=== PATIENT | female | born 1980 | race Caucasian/White ===

== ENCOUNTER 2018-04-06 11:14 | Inpatient (IN) | payer BC ==
[2018-04-06] MEDS ORDERED: Dinoprostone* 10 MG VAG.SUPP VAGINAL ONE (11:33)
--- NOTE | 2018-04-06 11:48 | HP ---
General Information - Reason for Visit post date - General Information Maternal Age: 37 Grav: 1 Estimated Due Date: 03/31/18 Determined By: Early Ultrasound Gestational Age in Weeks/Days: 40 w 6d Maternal Blood Type and Rh: A Negative - Results this Serology/RPR Result: Non-Reactive Rubella Result: Immune HBsAg Result: Negative HIV Result: Negative GBS Culture Result: Negative Past Medical History Pertinent Past Medical History: Non-Contributory Past Surgical History Comment: Hysteroscopy Pertinent Family History: Non-Contributory - Antepartal Records Antepartal Records: Reviewed, Uncomplicated - age 37, normal NIPT Review of Systems Constitutional: Comfortable CV Complaint: No Respiratory: Shortness of Breath: No Gastrointestinal: No Nausea/Vomiting, Normal Bowel Movement Genitourinary: No Leaking Fluid Musculoskeletal: No Complaint Neurological: No Headache Movement: Normal Exam Allergies/Adverse Reactions: Allergies No Known Allergies Allergy (Verified 01/27/15 20:34) - Measurements Height: 5 ft 5 in Weight: 204 lb Body Mass Index (BMI): 33.9 Pre- Weight: 155 lb - Exam Breast: - - soft, no masses Extremities: Edema Heart: Normal Rhythm/Heart Sounds HEENT: No Significant Findings Lungs: Clear Bilaterally Reflexes: DTR 2+ Thyroid: No Thyromegaly - Abdominal Exam Abdomen Exam: Non-Tender - Ultrasound/Biophysical Profile Ultrasound Status: Bedside Exam Ultrasound Findings: vertex presentation, spine on right Targeted Exam Findings Estimated Weight: 8 kbs Cervical Exam: Closed Effacement: Thick Station: -2 Presenting Part: Vertex Membrane Status: Intact Bleeding/Discharge: None EFM Findings - External Monitor Findings Baseline Heart Rate: 150 External Monitor Findings: Accelerations Present, No Pattern of Variable or Late Decelerations, Variability Moderate, Baseline Stable External Monitor Findings Comment: category 1 Contractions: None Assessment/Plan - Assessment primip at 40w 6 days, unripe cervix Options reviewed, Cervidil recommended for ripening, pt agreeable - Obstetrical Risk Factors Obstetrical Risk Factors: Assisted Reproduction - Plan Plan: Cervical Ripening - Date/Time of Admission Date of Admission: 04/06/18 Time of Admission: 11:40
--- NOTE | 2018-04-07 09:51 | PN ---
Progress Note - Progress Note Date of Service: 04/07/18 Note: S: Feeling well, slept, ate breakfast. Contractions slowed overnight and feeling them infrequently and mildly this am. O: BP 131/91 repeat, 133/90 afebrile UCs irregular FHT 130. Single decel into 90s, lasting 3 min, resolved with position changes. VE: 2cm/80%/-1 A: Post dates for induction of labor P: Close monitoring of status. PARQ discussion of pitocin for augmentation /induction. Patient in agreement and will begin low does pitocin. Encouraged position changes. Patient may desire MONY with active labor but unsure. Anticipate SVB.
[2018-04-07] MEDS ORDERED: Oxytocin in LR* 20 UNITS/1,000 ML BAG IVPB SCH (10:00)
[2018-04-07 10:30] LABS: ABS Basophils 0.1 10^3/ul (0-0.2); ABS Eosinophils 0 10^3/ul (0-0.6); ABS Lymphocytes 1.5 10^3/ul (1.0-4.8); ABS Monocytes 0.7 10^3/ul (0-0.8); ABS Neutrophils 8.4 10^3/ul (1.5-7.7); ABS Nucleated RBC 0 10^3/ul; Eosinophil % 0.4 % (0-6); Hematocrit 38 % (35-47); Lymphocyte % 13.7 % (25-47); Mean Corpuscular HGB Conc 34 g/dl (31-36); Mean Corpuscular Hemoglobin 33 pg (27-31); Mean Corpuscular Volume 96 fL (80-97); Mean Platelet Volume 9.3 um3 (7.4-10.4); Nucleated Red Blood Cells % 0; Platelet Count 214 10^3/ul (150-450); Red Blood Count 3.96 10^6/ul (4.00-5.40); Red Cell Distribution Width 14 % (10.5-15); White Blood Count 10.6 10^3/ul (3.5-10.8)
[2018-04-07 10:40] LABS: EGFR Non-African American 137.2 (>60)
[2018-04-07 11:28] LABS: Uric Acid 2.7 mg/dL (2.3-6.6)
--- NOTE | 2018-04-07 14:55 | PN ---
Progress Note - Progress Note Date of Service: 04/07/18 Note: S: Patient has been coping ok, was in tub. Now would like VE and to consider pain medication. Thinks she might have broken her water in the tub, clear fluid. Some bloody show noticed. O: Pitocin @ 6, now turned off UCs q 1.5-3 min FHT 135, +accels, no decels, mod elin VE 4-5cm/100/-1, possible membrane noted? A: Post dates for induction in active labor No evidence metabolic acidemia P: PARQ discussion nitrous oxide. Patient would like to try nitrous and is still considering epidural.
[2018-04-07] MEDS ORDERED: OBEPIDURAL* 250 ML EPIDURAL ONE (15:06)
[2018-04-07] MEDS ORDERED: Bupivacaine 0.5% SDV PF* 30ML VIAL ONE (15:25)
[2018-04-07] MEDS ORDERED: Sodium Citrate/Citric Acid* 15 ML UDC PO PRN (15:51)
[2018-04-07] MEDS ORDERED: Phenylephrine IV* 40 MCG/ML 10 ML SYRINGE IV PUSH PRN ×2 (15:51)
[2018-04-07] MEDS ORDERED: OBEPIDURAL* 250 ML EPIDURAL SCH (16:00)
--- NOTE | 2018-04-07 19:51 | PN ---
Progress Note - Progress Note Date of Service: 04/07/18 - Note time 1755 Note: S: Patient comfortable with epidural, feeling pressure of some contractions. Would like VE. O: Pit @ 6 VE 5/100/0 UCs q 3-4 min VSS, afebrile FHT 135, +accels, mod elin, rare variable decels A: Active labor P: Encourage use of peanut ball to open pelvis, position changes.
--- NOTE | 2018-04-07 20:06 | PN ---
Progress Note - Progress Note Date of Service: 04/07/18 Note: S: Patient comfortable. O: Pit @ 8 FHT 135 Mod variability, +accels, variable decels with most UCs, to 100s w return to baseline VE 6cm/100/0 VSS A: IUP in active labor P: Dr Rosario on unit and aware of strip. Continue close monitoring, encourage position changes. Decrease pitocin.
[2018-04-07] MEDS ORDERED: Acetaminophen SUPP* 325 MG SUPP PR ONE ×2 (23:05→23:45)
[2018-04-07] MEDS ORDERED: Acetaminophen SUPP* 650 MG SUPP PR ONE (23:05)
[2018-04-07] MEDS ORDERED: Acetaminophen SUPP* 650 MG SUPP ONE (23:08)
[2018-04-07] MEDS ORDERED: Ampicillin IV* 1 GM VIAL ONE (23:08)
[2018-04-07] MEDS: Ampicillin IV* 2 GM in NS 0.9% 50 ML* 50 ML IV SCH (23:37)
[2018-04-07] MEDS ORDERED: NS 0.9% IVPB SCH (23:45)
[2018-04-07] MEDS ORDERED: GENTAMICIN ADULT IVPB SCH (23:45)
--- NOTE | 2018-04-07 23:45 | PN ---
Progress Note - Progress Note Date of Service: 04/07/18 Note: S: Patient comfortable, no complaints at this time. O: FHT baseline change from approx [id number] to 170s-180s. Min elin. Variable and late decels with some UCs T 100.9 oral, repeat 100.1 oral Pitocin @ 4 UCs q 3-4 min VE 8cm/100/+1 A: IUP in active labor Likely chorioamnionitis P: Discontinue pitocin. Fluid bolus given. Supplemental O2 given. Reposition regularly. Discussed all with patient and will treat fever with acetaminophen and chorio with ampicillin/gentamycin IV per protocol. Consult with Dr Rosario who agrees with plan. Continue close monitoring, plan labor down when complete dilation.
[2018-04-07] MEDS ORDERED: Acetaminophen SUPP* 325 MG SUPP PR PRN (23:46)
--- NOTE | 2018-04-08 03:01 | PN ---
Progress Note - Progress Note Date of Service: 04/08/18 Note: Period of minimal FHR variability with late decels after 2 minute decel initially resolved with O2, position changes, fluid bolus. Continued 2+ minute decels. VE 8cm/100/+1. Discussed expedited surgical delivery with patient and call placed to Dr Rosario. Anesthesia, neonatology paged.
[2018-04-08] MEDS ORDERED: ceFOXitin 2 GM IVPREMIX* 2 GM/50 ML BAG ONE (03:25)
[2018-04-08] MEDS ORDERED: ceFOXitin 2 GM IVPREMIX* 2 GM/50 ML BAG IVPB ONE (03:26)
[2018-04-08] MEDS ORDERED: Sodium Citrate/Citric Acid* 15 ML UDC PO ONE (03:28)
[2018-04-08] MEDS ORDERED: fentaNYL* 50 MCG/ML 2 ML VIAL (100 MCG VIAL) ONE (03:29)
[2018-04-08] MEDS ORDERED: Morphine PF AMP (0.5MG/ML)* 5 MG/10 ML AMP ONE (03:29)
[2018-04-08] MEDS ORDERED: Acetaminophen SUPP* 650 MG SUPP PR PRN (03:30)
[2018-04-08] MEDS ORDERED: Bupivacaine-MPF SPINAL* 7.5 MG/ML - 2ML AMP ONE ×2 (03:31→03:39)
[2018-04-08] MEDS ORDERED: Phenylephrine INJ* 10 MG/ML 1 ML VIAL (10 MG) ONE (03:32)
[2018-04-08] MEDS ORDERED: Ondansetron INJ* 2 MG/ML VIAL ONE (03:50)
[2018-04-08] MEDS ORDERED: Naloxone* 0.4 MG/ML 1 ML VIAL IV PRN (04:40)
[2018-04-08] MEDS ORDERED: diPHENhydraMINE IV* 50 MG/ML 1 ml VIAL (BENADRYL) IV PRN (04:40)
[2018-04-08] MEDS ORDERED: Metoclopramide IV* 5 MG/ML 2 ML VIAL IV PRN (04:40)
[2018-04-08] MEDS ORDERED: oxyCODONE TAB* 5 MG TAB PO PRN (04:40)
[2018-04-08] MEDS ORDERED: Acetaminophen TAB* 325 MG PO PRN (04:40)
[2018-04-08] MEDS ORDERED: Ondansetron INJ* 2 MG/ML VIAL IV PRN (04:40)
[2018-04-08] MEDS ORDERED: RHO D Immune Globulin (HUMAN)* 300 MCG = 1,500 I.U. INJ IM ONE (04:48)
[2018-04-08] MEDS ORDERED: Witch Hazel PAD* JAR TOPICAL PRN (04:48)
[2018-04-08] MEDS ORDERED: Glycerin ADULT SUPP PR PRN (04:48)
[2018-04-08] MEDS ORDERED: Dibucaine 1% 28.35 GM TUBE PR PRN (04:48)
[2018-04-08] MEDS: Ketorolac INJ* 30 MG/ML 1 ML VIAL IV PRN ×3 (05:30→18:50)
[2018-04-08] MEDS: Ampicillin IV* 2 GM in NS 0.9% 50 ML* 50 ML IV SCH (06:30)
[2018-04-08] MEDS: Docusate CAP* 100 MG PO SCH ×3 (09:38→21:22)
[2018-04-08] MEDS: Simethicone TAB* 80 MG TAB.CHEW PO SCH ×4 (09:39→21:22)
[2018-04-08] MEDS: oxyCODONE/Acetamin 5/325 MG* TAB PO PRN ×2 (09:39→14:59)
--- NOTE | 2018-04-08 17:20 | OP ---
CC: [facility]. OPERATIVE REPORT: DATE OF OPERATION: 04/08/18 DATE OF : 84 SURGEON: Sean Rosario MD. DOOR CLAMPER: Rossy Robert CNM. ANESTHESIA: Spinal. PRE-OP DIAGNOSIS: at 41 weeks with an arrest of dilation and category II tracing in labor. POST-OP DIAGNOSIS: at 41 weeks with an arrest of dilation and category II tracing in labor . OPERATIVE PROCEDURE: Primary low transverse section with vacuum delivery of the head. ESTIMATED BLOOD LOSS: 600 mL. IV FLUIDS: She received 1200 cc of IV crystalloid fluid. URINE OUTPUT: 200 cc of clear urine. SPECIMEN SENT TO PATHOLOGY: Cord blood. FINDING: Delivery of a vial male infant with thick meconium fluid, weighing 7 pounds 10 ounces with Apgars of 7 and 10. The placenta was grossly intact with a 3- vessel cord noted. The uterus, adnexa , bowel ,and bladder were within normal limits and there were no complications. DESCRIPTION OF PROCEDURE: The patient was taken to the operating room where she was identified. She was placed on the operating table, where a spinal anesthetic was obtained without difficulty. She w as then placed in the supine position with a left-phan tilt, prepped and draped in a normal sterile f ashion. A Pfannenstiel skin incision was then made with a knife and carried through to the underlyin g layer of fascia. The fascia was nicked in the midline and extended laterally with curved Chandler scis sors. The fascia was grasped superiorly and inferiorly with Ham clamps and dissected off sharply f rom the rectus muscle. The rectus muscle was in the midline bluntly. The peritoneum was i dentified, grasped with pickups, entered sharply with Metzenbaum scissors and extended superiorly and inferiorly sharply. A bladder blade was inserted into the abdomen patient's abdomen. A bladder fla p was created using Metzenbaum scissors, over which the bladder blade was then reinserted. A low tra nsverse uterine incision was made with a knife extended laterally with bandage scissors. The amnioti c sac was ruptured. Fluid was noted to be thick meconium. The 's head was then grasped and att empted delivery by pushing 3 times. We then proceeded to place a vacuum on the baby's head and we we re able to deliver the fetus with one attempt. Vacuum was removed and the rest of the infant's body was then delivered. Nose and mouth were suctioned. The cord was clamped and cut and the was handed off to awaiting quality assurance/r&d lab technician. Cord bloods were obtained. The placenta was removed manually. T he uterus was then left in situ. The uterine incision was then closed using 0 Polysorb suture in a ru nning fashion with the second imbricating layer of 0 Polysorb suture with good hemostasis noted. The gutters were then cleared of all clot and debris using moist laparotomy sponges. The sponges were th en removed from the patient's abdomen. The peritoneum was then grasped with Radha clamps and closed with 3-0 Polysorb sutures in a running fashion. The fascia was closed with 0 Polysorb suture in a run steffanie fashion and the skin was closed with a 4-0 Monocryl subcuticular stitch. The patient tolerated the procedure well. The sponge, lap, needle counts were correct x2 She was then [facility] condition. [id number]/[facility] #: [id number]
[2018-04-08] MEDS ORDERED: Zolpidem TAB* 5 MG PO PRN (20:00)
[2018-04-08] MEDS ORDERED: oxyCODONE/Acetamin 5/325 MG* TAB PO PRN ×2 (20:00)
[2018-04-09] MEDS: Ketorolac INJ* 30 MG/ML 1 ML VIAL IV PRN (01:38)
[2018-04-09 06:51] LABS: ABS Basophils 0.1 10^3/ul (0-0.2); ABS Eosinophils 0.1 10^3/ul (0-0.6); ABS Lymphocytes 1.8 10^3/ul (1.0-4.8); ABS Monocytes 0.9 10^3/ul (0-0.8); ABS Neutrophils 12.2 10^3/ul (1.5-7.7); ABS Nucleated RBC 0 10^3/ul; Eosinophil % 0.6 % (0-6); Hematocrit 22 % (35-47); Hemoglobin 7.5 g/dl (12.0-16.0); Lymphocyte % 12.1 % (25-47); Mean Corpuscular HGB Conc 34 g/dl (31-36); Mean Corpuscular Hemoglobin 32 pg (27-31); Mean Corpuscular Volume 95 fL (80-97); Mean Platelet Volume 8.8 um3 (7.4-10.4); Nucleated Red Blood Cells % 0; Platelet Count 159 10^3/ul (150-450); Red Blood Count 2.34 10^6/ul (4.00-5.40); Red Cell Distribution Width 15 % (10.5-15); White Blood Count 15.1 10^3/ul (3.5-10.8)
[2018-04-09] MEDS: Ferrous Gluconate TAB* 324 MG TAB PO SCH ×2 (09:08→21:16)
[2018-04-09] MEDS: Ibuprofen TAB* 600 MG PO PRN ×3 (09:09→21:16)
[2018-04-09] MEDS: Simethicone TAB* 80 MG TAB.CHEW PO SCH ×4 (09:10→21:16)
[2018-04-09] MEDS: Docusate CAP* 100 MG PO SCH ×3 (09:10→21:16)
[2018-04-09] MEDS: Acetaminophen TAB* 325 MG PO PRN (17:46)
[2018-04-10] MEDS: Ibuprofen TAB* 600 MG PO PRN ×2 (04:48→20:05)
[2018-04-10 08:20] VITALS: BP 110/62
[2018-04-10] MEDS: Docusate CAP* 100 MG PO SCH ×3 (09:06→20:05)
[2018-04-10] MEDS: Ferrous Gluconate TAB* 324 MG TAB PO SCH ×2 (09:06→20:05)
[2018-04-10] MEDS: Simethicone TAB* 80 MG TAB.CHEW PO SCH ×4 (09:07→20:05)
[2018-04-10] MEDS: Acetaminophen TAB* 325 MG PO PRN (12:54)
[2018-04-11] MEDS: Docusate CAP* 100 MG PO SCH (08:12)
[2018-04-11] MEDS: Ibuprofen TAB* 600 MG PO PRN (08:12)
[2018-04-11] MEDS: Ferrous Gluconate TAB* 324 MG TAB PO SCH (08:12)
[2018-04-11] MEDS: Simethicone TAB* 80 MG TAB.CHEW PO SCH (08:12)
== END 2018-04-11 11:29 | disposition home or self-care (01) | DRG 540 ==
LOC: MCHOBOUT 11:14 → MCHOB 11:37
PROVIDERS: ADMIT Midwife; ATTEND Obstetrics & Gynecology
PROC: 3E033VJ Introduction of Other Hormone into Peripheral Vein, Percutaneous Approach (ICD-10-PCS; 2018-04-08)
PROC: 10D00Z1 Extraction of Products of Conception, Low, Open Approach (ICD-10-PCS; principal; 2018-04-08 03:37)
DX: O62.0 Primary inadequate contractions (principal); O48.0 Post-term pregnancy; O99.284 Endocrine, nutritional and metabolic diseases complicating childbirth; E03.9 Hypothyroidism, unspecified; O76 Abnormality in fetal heart rate and rhythm complicating labor and delivery; O77.0 Labor and delivery complicated by meconium in amniotic fluid; O90.81 Anemia of the puerperium; D64.9 Anemia, unspecified; Z3A.41 41 weeks gestation of pregnancy; Z37.0 Single live birth
CPT/HCPCS: 36415; 80053; 84550; 85025; 86850; 86900; 86901; 90686; A9270-GY; J0290; J0694; J1580; J1885; J2405; J3010